=== PATIENT | female | born 1970 | race Caucasian/White ===

== ENCOUNTER → 2020-11-04 13:14 | Outpatient (CLI) | payer OTHER, MEDICAID, SELFPAY ==
--- NOTE | 2020-11-04 14:27 | DI.MRI.S_ITS ---
PROCEDURE: MR LUMBAR SPINE WO CON INDICATIONS: Lumbago with sciatica, right side TECHNIQUE: Noncontrast sagittal T1 spin echo and T2 fast echo, sagittal STIR, axial T1 and T2 fast spin echo through the lumbar spine. In cases with scoliosis, additional coronal T2 fast spin echo may be performed. COMPARISON: None. FINDINGS: Image quality: Excellent. Alignment and Curvature: There is normal bony alignment. Bone Marrow: Marrow is of normal overall signal. No acute vertebral body compression fractures. Spinal Cord: Conus medullaris terminates at the L1 level. Visualized cord demonstrates normal signal and size. Paraspinous Soft Tissues: No paravertebral masses. T12-L1: Normal appearance. L1-L2: Normal appearance. L2-L3: Normal appearance. L3-L4: The disc height is well-preserved. Loss of disc signal is seen at this level. Mild generalized disc bulge is seen. No significant neural foraminal or central canal narrowing can be seen. L4-L5: The disc height is well-preserved. Loss of disc signal is seen at this level. Mild disc bulge is seen at this level. Mild to moderate facet hypertrophy is seen. Mild bilateral neural foraminal narrowing is seen. The central canal is widely patent. L5-S1: The disc height and disk signal are well-preserved. There is moderate right-sided and mild left-sided facet hypertrophy seen. No significant neural foraminal or central canal narrowing can be seen. IMPRESSION: Mild lower lumbar spine degenerative changes are seen. Dictated by: Lavell Purcell M.D. on 11/04/2020 at 16:03 Approved by: Lavell Purcell M.D. on 11/04/2020 at 16:05
== END ==
PROVIDERS: PCP Internal Medicine; Referring Provider Internal Medicine; Visit Provider Internal Medicine
DX: M47.26 Other spondylosis with radiculopathy, lumbar region (principal)
CPT/HCPCS: 72148

== ENCOUNTER 2021-12-28 09:20 | Emergency (ER) | payer OTHER, MEDICAID, SELFPAY ==
[2021-12-28] VITALS (7 sets, daily range): BP systolic 140–172; BP diastolic 84–96; PULSE 63–96; RESP 14–18; TEMP 36.9; O2SAT 97–99
--- NOTE | 2021-12-28 10:19 | DI.CT.S_ITS ---
PROCEDURE: CT KIDNEY URETER BLADDER (KUB) INDICATIONS: severe R flank pain with radiation to groin TECHNIQUE: Axial sections were acquired from the lung bases to the pubic symphysis. Coronal and sagittal reformats were performed. For radiation dose reduction, the following was used: automated exposure control, adjustment of mA and/or kV according to patient size. COMPARISON: None. FINDINGS: Image quality: Excellent. Lung bases: Unremarkable. Heart: No significant findings. URINARY: Right Kidney: No stones or hydronephrosis. Right Ureter: No hydroureter. Left Kidney: No stones or hydronephrosis. Left Ureter: No hydroureter. Bladder: Normal wall thickness. No stones. ABDOMEN: Liver: Unremarkable. Gallbladder: Status post cholecystectomy. Biliary ducts: Unremarkable. Pancreas: Unremarkable. Spleen: Unremarkable. Adrenal Glands: Unremarkable. Stomach and Bowel: Stomach, small bowel loops, and colon are unremarkable. Normal appendix. Peritoneum: No abnormal intraperitoneal fluid. No free air. Ventral Wall: No hernia. Abdominal Nodes: No enlarged retroperitoneal or mesenteric lymph nodes. Vessels: Aorta and inferior vena cava are normal in size. Moderate aortic atherosclerotic calcifications. PELVIS: Pelvic Organs: Status post hysterectomy. Pelvic Nodes: Unremarkable. Miscellaneous: No inguinal hernias are seen. Bones: Unremarkable. IMPRESSION: No acute abnormality identified in the abdomen or pelvis to account for the reported pain. Dictated by: Patricio Cox M.D. on 12/28/2021 at 10:47 Approved by: Patricio Cox M.D. on 12/28/2021 at 10:53
--- NOTE | 2021-12-28 10:21 | ED_ITS ---
HPI - Female Genitourinary General Chief complaint: Urogenital-Female Stated complaint: Thinks kidney stone Time Seen by Provider: 12/28/21 10:10 Source: patient Mode of arrival: Ambulatory History of Present Illness HPI Narrative: 51F daily smoker without significant medical history presents with significant other and a chief complaint of severe right flank pain that started last evening. She states that she had been in her normal state of health and developed a relatively sudden onset right midback pain that is since radiated around into her groin. She states that there is persistently a baseline level of discomfort but she has episodes without obvious provocation in which the pain rapidly intensifies. She denies any hematuria but states that she feels like she can not get all of her urine out. She denies any fever or chills. She is not dizzy nor weak or lightheaded denies any chest pain or shortness of breath. She denies vaginal bleeding or discharge Related Data Previous Rx's Medication Instructions Recorded hydrocodone 5 mg-acetaminophen 325 1 tab PO Q4-6H PRN pain #10 tabs 12/28/21 mg tablet ketorolac 10 mg tablet 10 mg PO Q6H PRN pain #14 tabs 12/28/21 ondansetron 4 mg disintegrating 4 mg PO TID-QID PRN nausea and 12/28/21 tablet vomiting #10 tabs Allergies Allergy/AdvReac Type Severity Reaction Status Date / Time Penicillins Allergy Verified 12/28/21 09:54 Review of Systems Review of Systems Narrative: GENERAL: Denies chills, fatigue, malaise, fever, sweats. HEENT: Denies sinus pain, ear pain, sore throat, difficulty swallowing, dizziness. RESPIRATORY: Denies dyspnea, cough, wheezing, hemoptysis, sputum. CARDIOVASCULAR: Denies chest pain, palpitations, orthopnea, edema, GASTROINTESTINAL: Denies nausea, vomiting, abdominal pain, diarrhea, constipation, melena. : see HPI MUSCULOSKELETAL: denies weakness, joint pain, or bony pain SKIN: Denies rash, skin lesions, or other NEUROLOGIC: Denies weakness, headache, numbness, change in speech, confusion, seizures, incoordination. PSYCHIATRIC: No concerning psychosocial issues. 12 point review of systems is negative except for those stated above Patient History alcohol intake frequency: holidays/special occasions only Substance Use Type: does not use Exam Narrative Exam Narrative: GENERAL: [51] year old patient appears stated age. Well-developed patient, in mi ld distress. Obviously uncomfortable HEAD: Atraumatic. Normocephalic. EYES: Pupils equal round and reactive. Extraocular motions intact. No scleral icterus. No injection or drainage. ENT: Nose without bleeding, purulent drainage. Throat without erythema, tonsillar hypertrophy or exudate. Airway patent. NECK: Trachea midline. Non tender CARDIOVASCULAR: Regular rate and rhythm without murmurs, gallops, or rubs. RESPIRATORY: Clear to auscultation. Breath sounds equal bilaterally. No wheezes, rales, or rhonchi. GASTROINTESTINAL: Abdomen soft, minimally tender in RLQ, no rebound, nondistended. : No drainage, cervical motion tenderness, erythema, lacerations, masses or abnormal findings. Performed with patient permission and female nurse supply chain specialist at the bedside EXTREMITIES: No edema or joint tenderness. BACK: Nontender without deformity or crepitance. No flank tenderness. NEURO: AOx3. SKIN: No rash or erythema of visible areas Initial Vital Signs Initial Vital Signs: Vital Signs Temperature 98.4 F 12/28/21 09:50 Pulse Rate 86 12/28/21 09:50 Respiratory Rate 14 12/28/21 09:50 Blood Pressure 172/96 H 12/28/21 09:50 Pulse Oximetry 99 12/28/21 09:50 Oxygen Delivery Method 12/28/21 09:50 Course Orders Ordered: ED Orders 12/28/21 10:14 Complete Blood Count AUTO DIFF Stat Comprehensive Metabolic Panel Stat Lipase Stat 12/28/21 10:19 CT kidney ureter bladder (KUB) Stat 12/28/21 11:46 US pelvic complete Stat 12/28/21 12:03 Genital Culture Stat Discontinued Medications Hydromorphone HCl (Hydromorphone 0.5 Mg Inj) 0.5 mg IV NOW ONE Stop: 12/28/21 11:47 Last Admin: 12/28/21 11:53 Dose: 0.5 mg Documented By: LUCIANA Sodium Chloride (Normal Saline 0.9%) 1,000 mls @ 1,000 mls/hr IV BOLUS ONE Stop: 12/28/21 11:18 Last Admin: 12/28/21 10:26 Dose: 1,000 mls/hr Documented By: LUCIANA Lidocaine HCl 5.8 ml/ Sodium (Chloride) 55.8 mls @ 334.8 mls/hr IV NOW ONE Stop: 12/28/21 11:04 Last Infusion: 12/28/21 11:30 Dose: 0 mls/hr Documented By: Admin: 12/28/21 11:15 Dose: 334.8 mls/hr Documented By: LUCIANA Ketorolac Tromethamine (Ketorolac 30 Mg/Ml Vial) 15 mg IV NOW ONE Stop: 12/28/21 10:20 Last Admin: 12/28/21 10:25 Dose: 15 mg Documented By: LUCIANA Ondansetron HCl (Ondansetron 4 Mg/2 Ml Inj) 4 mg IV NOW ONE Stop: 12/28/21 10:20 Last Admin: 12/28/21 10:26 Dose: 4 mg Documented By: LUCIANA Vital Signs Vital signs: Vital Signs - 8 hr 12/28/21 09:50 12/28/21 10:17 12/28/21 10:31 Temperature 98.4 F Pulse Rate 86 80 96 H Respiratory Rate 14 18 Blood Pressure 172/96 H 172/96 H Pulse Oximetry 99 97 98 Oxygen Delivery Method Room Air Room Air 12/28/21 11:00 12/28/21 11:24 12/28/21 11:24 Temperature Pulse Rate 87 82 Respiratory Rate Blood Pressure 148/93 H Pulse Oximetry 97 97 Oxygen Delivery Method 12/28/21 11:30 Temperature Pulse Rate 84 Respiratory Rate Blood Pressure Pulse Oximetry 98 Oxygen Delivery Method MDM - Female Genitourinary Lab Data Result diagrams: 12/28/21 10:14 12/28/21 10:14 Labs: Lab Results 12/28/21 12/28/21 Range/Units 10:14 10:14 WBC 15.7 H (4.5-11.0) X10^3/uL RBC 4.51 (4.0-5.2) X10^6/uL Hgb 15.4 (12.0-16.0) g/dL Hct 44.0 (36-46) % MCV 97.7 (80-100) fL MCH 34.1 H (26-34) PG MCHC 34.9 (30-36) % RDW 13.5 (11.6-14.8) % Plt Count 319 (150-400) X10^3/uL Neut % (Auto) 62.1 (50-75) % Lymph % (Auto) 28.6 (25-40) % Montague % (Auto) 6.7 (3-14) % Eos % (Auto) 1.8 L (2-4) % Baso % (Auto) 0.8 (0-2) % Neut # (Auto) 9800 H (1839-3029) /uL Lymph # (Auto) 4500 (1612-7859) /uL Montague # (Auto) 1100 H (0-900) /uL Eos # (Auto) 300 (0-450) /uL Baso # (Auto) 100 (0-100) /uL Sodium 139 (137-145) mmol/L Potassium 4.1 (3.4-5.1) mmol/L Chloride 106 (98-107) mmol/L Carbon Dioxide 24 (22-32) mmol/L BUN 25 H (7-17) mg/dL Creatinine 0.71 (0.52-1.04) mg/dL Estimated GFR > 60 (>60) mL/min BUN/Creatinine Ratio 35.2 H (6-22) Glucose 109 H (70-100) mg/dL Calcium 10.2 (8.4-10.2) mg/dL Total Bilirubin 0.5 (0.2-1.3) mg/dL AST 28 (14-36) IU/L ALT 19 (<35) IU/L Alkaline Phosphatase 88 (38-126) U/L Total Protein 8.5 H (6.3-8.2) g/dL Albumin 4.9 (3.5-5.0) g/dL Globulin 3.6 (1.7-4.1) g/dL Albumin/Globulin Ratio 1.4 (1.0-2.8) Lipase 58 (23-300) U/L Urine Dip Bedside Urine Glucose Negative Bedside Urine Bilirubin - Negative Bedside Urine Ketone - Negative Urine Specific Suches 1.030 Bedside Urine Occult Blood - Negative Bedside Urine pH 6.0 Bedside Urine Protein - Negative Bedside Urine Urobilinogen 0.2 Bedside Urine Nitrite - Negative Bedside Urine Leukocytes - Negative Esterase Imaging Data CT scan - abdomen/pelvis: Radiologist's Impression: [address] [address] [address] Scan Report Signed Patient: Nathaly Newsome MR#: [id number] : 1970 Acct:[id number] Age/Sex: 51 / F Date of Service: 12/28/21 Loc: ED Accession Number: [id number] ?? Procedure: CT kidney ureter bladder (KUB) Ordering Provider: Wes Mcdaniels D.O. PROCEDURE:? CT KIDNEY URETER BLADDER (KUB) ? INDICATIONS:? severe R flank pain with radiation to groin ? TECHNIQUE:? Axial sections were acquired from the lung bases to the pubic symphysis.? Coronal and sagittal reformats were performed.? For radiation dose reduction, the following was used: ?automated exposure control, adjustment of mA and/or kV according to patient size.? ? COMPARISON:? None. ? FINDINGS:? Image quality:? Excellent.? ? Lung bases:? Unremarkable.? ? Heart:? No significant findings. ? URINARY: Right Kidney:? No stones or hydronephrosis. Right Ureter:? No hydroureter. ? Left Kidney:? No stones or hydronephrosis. Left Ureter:? No hydroureter.? ? Bladder:? Normal wall thickness. No stones. ? ? ? ABDOMEN: Liver:? Unremarkable.? ? Gallbladder:? Status post cholecystectomy. Biliary ducts:? Unremarkable.? ? Pancreas:? Unremarkable.? ? Spleen:? Unremarkable.? ? Adrenal Glands:? Unremarkable.? ? ? Stomach and Bowel:? Stomach, small bowel loops, and colon are unremarkable.? Normal appendix. Peritoneum:? No abnormal intraperitoneal fluid.? No free air.? ? Ventral Wall: ? No hernia.? Abdominal Nodes:? No enlarged retroperitoneal or mesenteric lymph nodes.? Vessels:? Aorta and inferior vena cava are normal in size.? Moderate aortic atherosclerotic calcifications. ? PELVIS: Pelvic Organs:? Status post hysterectomy.? ? Pelvic Nodes: Unremarkable. Miscellaneous: No inguinal hernias are seen. ? ? ? Bones:? Unremarkable. ? IMPRESSION:? No acute abnormality identified in the abdomen or pelvis to account for the reported pain.? ? ? Dictated by: Patricio Cox M.D. on 12/28/2021 at 10:47 ? ? Approved by: Patricio Cox M.D. on 12/28/2021 at 10:53 ? MDM Narrative Medical decision making narrative: Multiple etiologies for patient's symptoms considered include, but not limited to: [Bowel obstruction versus kidney stone versus diverticulitis versus PID versus ovarian torsion Kidney stone considered high in the differential given relatively sudden onset and symptoms that started in her back and radiate around to her groin with colicky nature and no obvious provocation or palliation. UA shows no blood, or evidence of infection for that matter, and scan does not show obvious stone. No evidence of bowel obstruction on imaging Ovarian issue considered but thought unlikely given lack of findings on imaging such as torsion, tubo-ovarian abscess or other. Pelvic exam was very reassuring and no drainage, cervical motion tenderness or other noted. Patient's symptoms improved over duration of stay with above-stated therapies. History, physical exam, labs, imaging, and response to therapies have been reassuring. Findings and discharge diagnosis discussed with patient/family followed by verbalization of understanding Return precautions discussed with patient/family whom verbalize understanding. Pain has been well controlled and patient is tolerating oral hydration. Discharge Plan Departure Patient Disposition: Home Clinical Impression: Acute right flank pain Instructions: Acute Abdominal Pain Activity Restrictions/Additional Instructions: *You have been diagnosed with [right flank pain * As we discussed your history and physical exam as well as labs and imaging are very reassuring. There is no evidence of any severe diagnoses that would require a specific or immediate intervention. There is no evidence of urine infection, though my suspicion was high imaging would suggest against an obvious kidney stone. Ultrasound is reassuring and showed no evidence of abscess or torsion. *What to do: *Please continue to take your regular medications as directed. [x ] New medication prescriptions sent to your pharmacy: [[facility] ] *Please follow up with your primary care provider in 2-3 days, call for an appointment. Let them know you were seen in the Emergency Department and that we ask that you be seen in follow up. We will electronically transmit a record of today's note if your PCP is in our system *Please consider a clear liquid diet for the next 24-48 hours and then slowly advance to regular as tolerated. Also, try to avoid alcohol, nicotine, caffeine, spicy, acidic or fatty foods as this may worsen your symptoms *If you do not have a primary care provider please contact the [facility] Resource line at [phone]. They will ask some questions about your medical history and help get you set up with a doctor in the community. *Return to Emergency Department if you should have any new, worsening or concerning symptoms, such as [fever greater than 101 F, shaking chills, worsening pain, persistent vomiting or other bothersome symptoms] You have been prescribed a short course of narcotic medications. These are potentially dangerous and addictive medications that should be used carefully. While on these medications you cannot drive or operate heavy machinery. Additionally, you cannot sign legal documents or perform any duties such as this. 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 Please understand that we cannot provide further refills of narcotics or controlled substances through the ED and your pain management will need to be through your Primary Care Provider Prescriptions: New hydrocodone-acetaminophen 5-325 mg tablet 1 tab PO Q4-6H PRN (Reason: pain) Qty: 10 0RF ketorolac 10 mg tablet 10 mg PO Q6H PRN (Reason: pain) Qty: 14 0RF ondansetron 4 mg tablet,disintegrating 4 mg PO TID-QID PRN (Reason: nausea and vomiting) Qty: 10 0RF Referrals: Brenden Andino MD [Primary Care Provider] -
[2021-12-28] MEDS: KETOROLAC 30 MG/ML VIAL 15 MG IV (10:25)
[2021-12-28] MEDS: ONDANSETRON 4 MG/2 ML INJ IV (10:26)
[2021-12-28] MEDS: SODIUM CHLORIDE 0.9% 1,000 ML 1000 ML IV (10:26)
[2021-12-28 10:31] LABS: Add Manual Diff / Slide Review NO; Basophils Absolute Auto 100 /uL (0-100); Basophils Percent Auto 0.8 % (0-2); Eosinophils Absolute Auto 300 /uL (0-450); Eosinophils Percent Auto 1.8 % (2-4); Hemoglobin 15.4 g/dL (12.0-16.0); Lymphocytes Absolute Auto 4500 /uL (1100-4500); Lymphocytes Percent Auto 28.6 % (25-40); Mean Corpuscular HGB Conc 34.9 % (30-36); Mean Corpuscular Hemoglobin 34.1 PG (26-34); Mean Corpuscular Volume 97.7 fL (80-100); Monocytes Absolute Auto 1100 /uL (0-900); Monocytes Percent Auto 6.7 % (3-14); Neutrophils Absolute Auto 9800 /uL (1500-7000); Neutrophils Percent Auto 62.1 % (50-75); Platelet Count 319 X10^3/uL (150-400); Red Blood Cell Count 4.51 X10^6/uL (4.0-5.2); Red Cell Distribution Width 13.5 % (11.6-14.8); White Blood Cell Count 15.7 X10^3/uL (4.5-11.0)
[2021-12-28 10:47] LABS: Alanine Aminotransferase 19 IU/L (<35); Albumin 4.9 g/dL (3.5-5.0); Albumin Globulin Ratio 1.4 (1.0-2.8); Alkaline Phosphatase 88 U/L (38-126); Aspartate Aminotransferase 28 IU/L (14-36); BUN Creatinine Ratio 35.2 (6-22); Bilirubin Total 0.5 mg/dL (0.2-1.3); Blood Urea Nitrogen 25 mg/dL (7-17); Calcium 10.2 mg/dL (8.4-10.2); Carbon Dioxide 24 mmol/L (22-32); Chloride 106 mmol/L (98-107); Estimated Glomerular Filt Rate > 60 mL/min (>60); Globulin 3.6 g/dL (1.7-4.1); Glucose 109 mg/dL (70-100); HEMOLYSIS < 15 (0-50); Lipase 58 U/L (23-300); Potassium 4.1 mmol/L (3.4-5.1); Sodium 139 mmol/L (137-145); Total Protein 8.5 g/dL (6.3-8.2)
[2021-12-28] MEDS: LIDOCAINE 2% 5.8 ML in SODIUM CHLORIDE 0.9% 50 ML 334.8 ML IV (11:15)
--- NOTE | 2021-12-28 11:46 | DI.US.S_ITS ---
PROCEDURE: US PELVIC COMPLETE INDICATIONS: RLQ pain, no significant CT findings TECHNIQUE: Real-time scanning was performed of the pelvic organs, with image documentation. Additional endovaginal scanning was necessary due to incomplete visualization of the adnexal and endometrial structures by transabdominal scanning. COMPARISON: [facility], CT, CT KIDNEY URETER BLADDER (KUB), 12/28/2021, 10:27. FINDINGS: Uterus: Absent. Ovaries: The right ovary measures 2.3 x 1.4 x 1.4 cm. The left ovary measures 3.2 x 1.8 x 1.7 cm. There is a prominent follicle versus small cyst noted within the left ovary with largest dimension measuring 1.7 cm. No adnexal masses are seen. Other: No pathologic free abdominal or pelvic fluid. IMPRESSION: Prominent follicle versus small cyst in the left ovary. We strive to produce accurate, complete, and clear reports of imaging services. To assist us in improving patient care, this report was composed using standard report templates and voice recognition software. Therefore, it may contain abnormal punctuation, insertions and/or omissions. Occasional wrong-word or sound-alike substitutions may occur. Though we review the report and make efforts to correct it, we do recommend that the report be read carefully in proper context to recognize any text inaccuracies. Dictated by: Maria Isabel Paredes M.D. on 12/28/2021 at 15:18 Approved by: Maria Isabel Paredes M.D. on 12/28/2021 at 15:20
[2021-12-28] MEDS: HYDROMORPHONE 0.5 MG INJ IV (11:53)
== END 2021-12-28 13:56 | disposition home or self-care (01) ==
PROVIDERS: Emergency Provider Emergency Medicine; PCP Internal Medicine
DX: R10.9 Unspecified abdominal pain (principal); M54.6 Pain in thoracic spine
CPT/HCPCS: 36415; 74176; 76830; 76856; 80053; 81003; 83690; 85025; 87070; 87205; 96361; 96374; 96375; 99284; J1170; J1885; J2405

== ENCOUNTER → 2024-06-27 13:27 | Outpatient (CLI) | payer OTHER, SELFPAY ==
--- NOTE | 2024-06-27 13:32 | DI.ECHO.S_ITS ---
[facility] : : [address] : : [place] : : [id number] : : Phone: [phone] Echocardiogram Report + + :Name: MIAH FISHER Study Date: 06/27/2024 Height: 64 in : :Hospital ReadingLocation: Weight: 149 lb : : Gender: Female BSA: 1.7 m2 : :: 1970 Age: 54 yrs BP: 147/91 mmHg: :Reason For Study: Essential HTN, Family Hx ischemic heart : :disease : :Ordering Physician: LANNY MATTHEWS Performed By: Mary Garibay : :Referring: LANNY MATTHEWS : + + Interpretation Summary 1. The left ventricular contractility is borderline. Estimate ejection fraction is 50 to 55% with no segmental wall motion abnormalities. No left ventricular hypertrophy. Normal diastolic function. 2. The right ventricular contractility is normal. 3. Mild left atrial enlargement. All other cardiac chambers are of normal size. 4. No significant valvular abnormalities. 5. No obvious intracardiac shunts. 6. No obvious intracardiac masses nor thrombi. 7. No hemodynamically significant pericardial effusion. 8. Low right-sided filling pressures. Conclusion: Low normal left ventricular systolic function with no significant valvular abnormalities. Procedure: A two-dimensional transthoracic echocardiogram with color flow and Doppler was performed. The study quality was technically adequate. There is no prior echocardiogram noted for this patient. The patient was in a bradycardic rhythm during the exam. The patient was in sinus rhythm with heart rates between 40-60 bpm during the exam. Left Ventricle: The left ventricle is normal in size and wall thickness. The ejection fraction is estimated to be 50-55%. Diastolic parameters suggest probable normal left ventricular diastolic function and normal filling pressures. Right Ventricle: The right ventricle is normal in size and function. Atria: The left atrium is mildly dilated. Right atrial size is normal. There is no Doppler evidence for an interatrial shunt. Mitral Valve: The mitral valve leaflets appear moderately thickened, but open well. The mitral valve leaflets are slightly calcified. There is a flat closure plane of the the mitral valve leaflets. There is no mitral valve stenosis. There is trace mitral regurgitation. Aortic Valve: The aortic valve is trileaflet. The aortic valve opens well. There is no aortic valve stenosis. There is trace aortic regurgitation. Tricuspid Valve: The tricuspid valve leaflets are thin and pliable. There is a trace or physiologic amount of tricuspid regurgitation. The right ventricular systolic pressure is estimated to be at least 18 mmHg based on an estimated right atrial pressure of 3 mm Hg. Pulmonic Valve: The pulmonic valve is not well seen, but is grossly normal. Flying W sign consistent with premature closure of the pulmonic valve. There is a trace or physiologic amount of pulmonic regurgitation. Great Vessels: The aortic root is normal size. The ascending aorta is normal in size. The aortic arch is normal in size. The pulmonary artery is normal size. The IVC is of normal diameter and collapses greater than 50% with a sniff. This suggests a low right atrial pressure of 3 mm Hg. Pericardium/ Pleura There is an anterior echo-free space consistent with a fat pad. There is no pericardial effusion. There is no pleural effusion. MMode/2D Measurements & Calculations LVIDd: 5.0 cm LVOT diam: 2.3 cm LVIDs: 4.1 cm Ao root diam: 2.7 cm FS: 17.7 % asc Aorta Diam: 3.1 cm EPSS: 0.92 cm Ao Arch Diam (Prox Trans): 2.0 cm IVSd: 0.74 cm LVPWd: 1.0 cm LV verma. diameter/BSA (cm/m^2): 2.9 LV sys. diameter/BSA (cm/m^2): 2.4 LA A2 area: 19.6 cm2 RA long axis: 4.9 cm LA A4 area: 22.8 cm2 RA area: 16.2 cm2 LA length (vol): 5.8 cm RA vol: 45.3 ml LA vol: 65.8 ml RA : 26.3 ml/m2 LA vol index: 38.1 ml/m2 IVC diam: 2.1 cm TAPSE: 2.4 cm Doppler Measurements & Calculations Ao V2 max: 128.8 cm/sec LVOT Max Derrick: 75.3 cm/sec Ao V2 mean: 84.2 cm/sec LV V1 max P.3 mmHg Ao max P.6 mmHg LV V1 VTI: 18.4 cm Ao mean P.2 mmHg SAVANNAH(I,D): 2.4 cm2 Ao V2 VTI: 32.7 cm SAVANNAH(V,D): 2.5 cm2 sev ratio: 0.56 SAVANNAH indexed to BSA (cm^2/m^2): 1.4 MV E max derrick: 61.3 cm/sec TR max derrick: 195.6 cm/sec MV A max derrick: 51.1 cm/sec TR max P.3 mmHg MV E/A: 1.2 PA V2 max: 51.8 cm/sec Med Peak E' Derrick: 7.1 cm/sec PA V2 mean: 40.4 cm/sec E/E' med: 8.6 PA mean P.72 mmHg Lat Peak E' Derrick: 11.5 cm/sec PA pr(Accel): 7.1 mmHg E/E' lat: 5.3 E/e' average: 7.0 MV dec time: 0.22 sec MVA(VTI): 2.8 cm2 MV V2 mean: 35.9 cm/sec SV(LVOT): 78.4 ml MV mean P.63 mmHg MV V2 VTI: 27.8 cm Reading Physician:
--- NOTE | 2024-06-27 13:33 | DI.NM.S_ITS ---
PROCEDURE: NM EXERCISE TREADMILL NON NUC COMPARISON: None. INDICATIONS: ESSENTIAL HTN,FAM HX ISCHEMIC HEART DISEASE FINDINGS: Rest ECG sinus rhythm 70 bpm. Bhavesh protocol 5:39, maximum heart rate 129 bpm (78% peak predicted), peak blood pressure 170/86, 7.0 METS, TRINY +22%. Exercise ECG sinus tachycardia, no ST segment changes, frequent polymorphic PVCs that lasted up to 4 minutes in recovery. The patient did not report exercise-induced chest pain however was observed to have severe shortness of breath with an SpO2 of 90% at peak exercise. IMPRESSION: Abnormal study. Patient was unable to achieve target heart rate. No evidence of exercise-induced ST segment changes however there were frequent polymorphic PVCs with exercise and in recovery. Severe exercise-induced shortness of breath with decreased oxygen saturation. Normal blood pressure response. Reduced exercise capacity. Dictated by: Radha Desir D.O. on 06/27/2024 at 16:26 Approved by: Radha Desir D.O. on 06/27/2024 at 16:31
== END ==
PROVIDERS: PCP Internal Medicine; Referring Provider Internal Medicine; Visit Provider Internal Medicine
DX: I10 Essential (primary) hypertension (principal); Z82.49 Family history of ischemic heart disease and other diseases of the circulatory system; R94.39 Abnormal result of other cardiovascular function study
CPT/HCPCS: 93017; 93306